=== PATIENT | female | born 2000 | race Caucasian/White ===

== ENCOUNTER 2022-01-11 11:20 | Emergency (ER) | payer OTHER ==
[~2022-01-11] VITALS: Ht 172.7 cm; Wt 76.4 kg
[2022-01-11] MEDS ORDERED: ETON68IM SC (11:29)
[2022-01-11] MEDS ORDERED: IBUPROFEN 600MG TAB PO ONE (11:45)
[2022-01-11] MEDS ORDERED: NS 1,000 ML IV ONE (12:25)
[2022-01-11] MEDS ORDERED: CYCLOBENZAPRINE 5MG TABLET PO ONE (12:25)
[2022-01-11 13:03] LABS: BASO % 0.2 % (0.0-1.0); EOS % 0.2 % (0.0-3.0); HEMATOCRIT 39.5 % (36.0-47.0); HEMOGLOBIN 13.4 g/dl (12.0-15.5); LYMPH # 0.2 10^3/uL (1.5-5.0); LYMPH % 1.4 % (24.0-44.0); MEAN CORPUSCULAR HEMOGLOBIN 28.9 pg (27.0-33.0); MEAN CORPUSCULAR HGB CONC 33.9 g/dl (32.0-36.5); MEAN CORPUSCULAR VOLUME 85.3 fl (80.0-96.0); MONO # 1.1 10^3/uL (0.0-0.8); MONO % 9.9 % (2.0-8.0); NEUTROPHILS # 9.6 10^3/uL (1.5-8.5); NEUTROPHILS % 87.8 % (36.0-66.0); PLATELET COUNT, AUTOMATED 230 10^3/uL (150-450); RED BLOOD COUNT 4.63 10^6/uL (4.00-5.40); WHITE BLOOD COUNT 10.9 10^3/uL (4.0-10.0)
[2022-01-11 14:12] LABS: HCG, SERUM QUALITATIVE NEGATIVE (NEGATIVE)
[2022-01-11 14:18] LABS: BLOOD UREA NITROGEN 12 MG/DL (7-18); CALCIUM LEVEL 8.8 MG/DL (8.5-10.1); CARBON DIOXIDE LEVEL 19 MEQ/L (21-32); CHLORIDE LEVEL 108 MEQ/L (98-107); CREATININE FOR GFR 0.67 MG/DL (0.55-1.30); GLUCOSE, FASTING 83 MG/DL (70-100); SODIUM LEVEL 136 MEQ/L (136-145)
[2022-01-11 14:55] VITALS: BP 104/56
== END 2022-01-11 14:58 | disposition home or self-care (01) ==
LOC: M ED 11:20
DX: U07.1 COVID-19 (principal)

== ENCOUNTER 2024-12-19 09:29 | Day surgery (SDC) | payer OTHER ==
[~2024-12-19] VITALS: Ht 175.3 cm; Wt 107.6 kg
[~2024-12-19 09:29] MED LIST: ETON68IM SC
[2024-12-19] MEDS ORDERED: FAMOTIDINE 20 MG/2 ML VIAL IVP ONE (09:35)
[2024-12-19] MEDS ORDERED: LR 1,000 ML IV SCH (09:35)
[2024-12-19] MEDS ORDERED: MIDAZOLAM INJ 2 MG/2 ML VIAL As Ordered ONE (09:48)
[2024-12-19] MEDS ORDERED: LIDOCAINE 2% 100 MG/5 ML SDV (FOR ANES.) As Ordered ONE (09:53)
[2024-12-19] MEDS ORDERED: ROCURONIUM BROMIDE 50MG/5ML VIAL As Ordered ONE (09:53)
[2024-12-19] MEDS ORDERED: dexAMETHasone 4 MG/ML 1 ML VIAL As Ordered ONE (09:54)
[2024-12-19] MEDS ORDERED: SUGAMMADEX SODIUM 500 MG/5 ML VIAL As Ordered ONE (09:55)
[2024-12-19] MEDS ORDERED: ONDANSETRON 4MG 2ML VIAL As Ordered ONE (09:55)
[2024-12-19] MEDS ORDERED: ACETAMINOPHEN 1000MG/100ML IV BAG As Ordered ONE (09:56)
[2024-12-19] MEDS: SCOPOLAMINE 1MG TRANSDERMAL PATCH TOP ONE (10:24)
[2024-12-19] MEDS: OXYMETAZOLINE 0.05% NASAL SPRAY As Ordered ONE (11:34)
[2024-12-19] MEDS ORDERED: HYDROMORPHONE HCL 0.5 MG/0.5 ML SYRINGE IV PRN (11:45)
[2024-12-19] MEDS ORDERED: MORPHINE 2 MG/ML 1 ML VIAL IV PRN (11:45)
[2024-12-19] MEDS ORDERED: HYDROmorphone HCL 2 MG/ML 1 ML VIAL As Ordered ONE (11:56)
[2024-12-19 13:00] VITALS: BP 119/71; TEMP 97.1; O2SAT 95
== END 2024-12-19 13:10 | disposition home or self-care (01) ==
LOC: M SDC 09:29
PROVIDERS: ATTEND Otolaryngology
DX: J35.01 Chronic tonsillitis (principal)
CPT/HCPCS: 42826; 81025; 88302; J0131; J1100; J1171; J2250; J2405; J3010

== ENCOUNTER 2024-12-22 11:02 | Emergency (ER) | payer OTHER ==
[~2024-12-22] VITALS: Ht 175.3 cm; Wt 104.9 kg
[2024-12-22] MEDS ORDERED: IBUP600T42 PO (11:53)
[2024-12-22] MEDS ORDERED: OXYC1TAB23 PO (11:53)
[2024-12-22] MEDS ORDERED: IBUP80TA PO (13:11)
[2024-12-22] MEDS ORDERED: HOME MED LIST COMPLETE! XX SCH (13:15)
[2024-12-22] MEDS: MAALOX 30 ML SUSP *UDC PO ONE (14:29)
[2024-12-22] MEDS: diphenhydrAMINE 50 MG/ML VIAL IV STA (14:30)
[2024-12-22] MEDS: LIDOCAINE VISCOUS 2% SOLN 15 ML UDC PO ONE (14:30)
[2024-12-22] MEDS ORDERED: PRED20TA PO (15:53)
[2024-12-22 15:56] VITALS: BP 123/79; TEMP 96.4; O2SAT 99
== END 2024-12-22 16:10 | disposition home or self-care (01) ==
LOC: M ED 11:02
DX: T81.89XA Other complications of procedures, not elsewhere classified, initial encounter (principal); R13.10 Dysphagia, unspecified
CPT/HCPCS: 96374; 96375; 99284; J1100; J1200